=== PATIENT | male | born 1960 | race Caucasian/White ===

== ENCOUNTER 2016-12-22 06:07 | Day surgery (SDC) | payer OTHER ==
[2016-12-14 13:23] VITALS: BMI 53.0
[~2016-12-22] VITALS: Ht 185.4 cm; Wt 181.8 kg
[~2016-12-22 06:07] MED LIST: ACP20 PO; CARB25TA14 PO; FINA5TAB PO; LACTATED RINGER'S 1000ML 1,000 ML IV SCH; NAPR-1169 PO; NRV/5 PO; RANI150T3 PO
[2016-12-22] MEDS ORDERED: ACET-1311 PO (06:32)
[2016-12-22 06:34] VITALS: BP 156/90; PULSE 104; TEMP 36.6; O2SAT 95; Ht 185.4 cm; Wt 181.8 kg
[2016-12-22] MEDS ORDERED: FENTANYL CITRATE INJ 50 MCG/1 ML 2 ML VIAL ONE (06:50)
[2016-12-22] MEDS ORDERED: MIDAZOLAM HCL 1 MG/ML 2ML VIAL ONE (06:51)
--- NOTE | 2016-12-22 07:27 | Endo History and Physical ---
History & Physical Date of Service: Dec 22, 2016. Chief Complaint: Referring Physician: History of Present Illness 56 year old male patient of Dr. Catalan with a hx of obesity, GERD, recently dx'ed with HTN who presents today for RUQ pain. He first noticed this pain in August. It is intermittent, burning, "like someone is stabbing me," worse on an empty stomach, easing up a bit after eating. No nausea, no vomiting. Pain is present every day, present from 15 min to 3-4 hrs. Laying on his right side helps this. Tending toward constipation lately which he attributes to antibiotics and steroids for sinusitis. No black tarry stools no blood in stools. Weight is increasing. He has a hx of reflux, but this pain does not feel like reflux. Currently on Ranitidine and Aciphex. Prior work up to Date: RUQ US 10/27/16: Post cholecystectomy, no biliary duct dilatation. Hepatomegaly with steatosis. The common bile duct measures 5 mm. No ascites. EGD in 2011 for heartburn: - Normal esophagus. - Z-line regular, 42 cm from the incisors. - Gastritis. This was biopsied. - Two gastric polyps. This was biopsied. - Normal duodenal bulb. _ Normal 2nd part of the duodenum. This was biopsied.~ Results for PHILLIP PAPPAS ( ) as of 12/21/2016 12:50 Ref. Range 12/09/2016 14:38 ALBUMIN Latest Ref Range: 3.8 - 5.0 g/dL 4.4 ALKALINE PHOSPHATASE Latest Ref Range: 0 - 153 U/L 66 ALT Latest Ref Range: 10 - 50 U/L 33 AST Latest Ref Range: 10 - 50 U/L 29 BILIRUBIN Latest Ref Range: 0 - 1.2 mg/dL 0.4 PROTEIN Latest Ref Range: 6.0 - 8.3 g/dL 7.4 Results for PHILLIP PAPPAS ( ) as of 12/21/2016 12:50 Ref. Range 12/09/2016 14:38 BUN Latest Ref Range: 6 - 20 mg/dL 20 CREATININE Latest Ref Range: 0.6 - 1.2 mg/dL 0.9 E GLOM FILT RATE Latest Ref Range: >60 >60.0 SODIUM Latest Ref Range: 135 - 146 mmol/L 142 POTASSIUM Latest Ref Range: 3.5 - 5.1 mmol/L 4.3 CHLORIDE Latest Ref Range: 98 - 107 mmol/L 102 CO2 Latest Ref Range: 22 - 32 mmol/L 24 GLUCOSE Latest Ref Range: 70 - 120 mg/dL 91 CALCIUM Latest Ref Range: 8.4 - 10.2 mg/dL 9.7 ANION GAP Latest Ref Range: 7 - 15 mmol/L 16 (H) ALBUMIN Latest Ref Range: 3.8 - 5.0 g/dL 4.4 ALKALINE PHOSPHATASE Latest Ref Range: 0 - 153 U/L 66 ALT Latest Ref Range: 10 - 50 U/L 33 AST Latest Ref Range: 10 - 50 U/L 29 BILIRUBIN Latest Ref Range: 0 - 1.2 mg/dL 0.4 LIPASE Latest Ref Range: 16 - 63 U/L 42 PROTEIN Latest Ref Range: 6.0 - 8.3 g/dL 7.4 Past Medical History Arthritis, Reflux, Sleep Apnea Past Surgical History Hx Cardiac Surgery: No Hx Abdominal Surgery: Yes (LEFT INGUINAL HERNIA REPAIR;CHOLECYSTECTOMY) Hx Post-Op Nausea and Vomiting: Yes (PONV) Hx Cancer Surgery: No Hx Thoracic Surgery: No Hx Orthopedic: Yes (LEFT ANKLE ORIF, LEFT TKA) Hx Urinary Tract Surgery: No Social History Smoking Status: Never Smoker Hx Substance Use: No Hx Alcohol Use: No Allergies Coded Allergies: Sulfamethoxazole w/Trimethoprim (Verified Allergy, Mild, GI UPSET, 12/22/16 ) Current Medications Reported Home Medications Medications Dose Route/Sig Max Daily Dose Days Date Category Amlodipine Besylate 5 Mg Tab 5 Mg PO QAM 12/14/16 Reported Proscar (Finasteride) 5 Mg Tab 5 Mg PO QAM 12/14/16 Reported Sinemet 25MG/250MG (Carbidopa/Levodopa) Tab 1 Tab PO HS 12/14/16 Reported Zantac (Ranitidine HCl) 150 Mg Tab 150 Mg PO BID 08/09/14 Reported Naprosyn (Naproxen) 500 Mg Tab 500 Mg PO BID PRN 02/01/09 Reported Aciphex * (Rabeprazole Sodium) 20 Mg Tabcr 20 Mg PO QPM 02/01/09 Reported Vital Signs Weight (Kilograms): 181.82 Height (Feet): 6 Height (Inches): 1 Physical Exam General Appearance: WD/WN, no apparent distress Respiratory/Chest: Auscultation: breath sounds normal, CTA except as noted Cardiovascular: Apical Impulse: not displaced Heart Auscultation: RRR, normal S1, normal S2 Abdomen: Inspection & Palpation: soft, non-distended, no tenderness, guarding & rebound, no masses Assessment and Plan Plan for EUS/EGD for unexplained abdominal pain
[2016-12-22] MEDS ORDERED: LIDOCAINE HCL 2% 2 ML VIAL (20MG/ML) ONE (08:59)
[2016-12-22] MEDS ORDERED: PROPOFOL IV EMULSION 10 MG/ML 20 ML VIAL IV ONE (08:59)
[2016-12-22] MEDS ORDERED: LARYING-O-JET KIT (LTA) EXT ONE ×2 (08:59)
[2016-12-22] MEDS ORDERED: DEXAMETHASONE SOD INJ 4 MG/ML VIAL ONE (08:59)
[2016-12-22] MEDS ORDERED: ONDANSETRON INJ 2 MG/ML 2 ML VIAL ONE (08:59)
[2016-12-22] MEDS ORDERED: SUCCINYLCHOLINE CHLORIDE 20 MG/ML 10 ML VIAL IV ONE (08:59)
--- NOTE | 2016-12-22 09:01 | GI REPORT ---
Procedure Date: 12/22/2016 8:31 AM Procedure: Upper GI endoscopy Indications: Epigastric abdominal pain Medicines: General Anesthesia Complications: No immediate complications. Estimated blood loss: None. Estimated Blood Loss: Estimated blood loss: none. Procedure: Pre-Anesthesia Assessment: - Pre-Anesthesia Assessment: - Prior to the procedure, a History and Physical was performed, and patient medications, allergies and sensitivities were reviewed. The patient's tolerance of previous anesthesia was reviewed. Please see [employer] for complete details. - The risks and benefits of the procedure and the sedation options and risks were discussed with the patient. All questions were answered and informed consent was obtained. - Patient identification and proposed procedure were verified prior to the procedure by the physician and the nurse. The procedure was verified in the pre-procedure area in the procedure room. After obtaining informed consent, the endoscope was passed carefully and meticuously under direct vision and only advanced when the lumen was clearly identified, C02 insuflation was utilized throughout the entirity of the procedure. Throughout the procedure, the patient's blood pressure, pulse, and oxygen saturations were monitored continuously. After obtaining informed consent, the endoscope was passed under direct vision. Throughout the procedure, the patient's blood pressure, pulse, and oxygen saturations were monitored continuously. The scope was introduced through the mouth, and advanced to the second part of duodenum. The upper GI endoscopy was accomplished without difficulty. The patient tolerated the procedure well. Findings: The examined esophagus was normal. Localized mild inflammation characterized by erythema was found in the gastric antrum. Biopsies were taken with a cold forceps for histology. The examined duodenum was normal. Biopsies were taken with a cold forceps for histology. Impression: - Normal esophagus. - Gastritis. Biopsied. - Normal examined duodenum. Biopsied. Recommendation: - Await pathology results. - Discharge patient to home (with escort). - Return to referring physician as previously scheduled. - Perform an upper endoscopic ultrasound (UEUS) today. Gonzalez Collins MD 12/22/2016 9:00:32 AM This report has been signed electronically. Note Initiated On: 12/22/2016 8:31 AM
--- NOTE | 2016-12-22 09:21 | Discharge Instructions ---
Endoscopy Patient Instructions Date / Procedure(s) Performed Dec 22, 2016. EGD, Other (EUS) Allergy Information Coded Allergies: Sulfamethoxazole w/Trimethoprim (Verified Allergy, Mild, GI UPSET, 12/22/16 ) Discharge Date / Findings Dec 22, 2016. Mild inflammation in stomach, otherwise normal Provider Instructions Activity Restrictions - No exercising or heavy lifting for 24 hours. - Do not drink alcohol the day of the procedure. - Do not drive a car or operate machinery until the day after the procedure. - Do not make any important decisions or sign important papers in 24 hours after the procedure. Following Day: - Return to full activity which may include returning to work/school. Diet Start your diet with liquids and light foods (jello, soup, juice, toast). Then eat your usual diet if not nauseated. Treatment For Common After Affects For mild abdominal pain, bloating, or excessive gas: - Rest - Eat lightly - Lie on right side Follow-Up Information Follow-up with as scheduled Anesthesia Information What You Should Know You have had a procedure that required some medicine to reduce anxiety and discomfort. This treatment is called moderate sedation. After receiving the treatment, you may be sleepy, but you will be able to breathe on your own. The effects of the treatment may last for several hours. Follow these instructions along with Activity/Diet recommendations noted above: * Do NOT do anything where dizziness or clumsiness would be dangerous. * Rest quietly at home today, then you can be up and about tomorrow. * Have a responsible person stay with you the rest of today. * You may have had an I.V. today. If so, you may take the dressing off later today. Recommendations Call your doctor if: * Trouble breathing * Continuous vomiting for more than 24 hours * Temperature above 101 degrees * Severe abdominal pain or bloating * Pain not relieved by pain medicine ordered * There is increased drainage or redness from any incision * A large amount of rectal bleeding greater than 2-3 tablespoons. (If you had a polyp/s removed or have hemorrhoids, a small amount of blood - from the rectum is to be expected.) * You have any unanswered questions or concerns. IN THE EVENT OF A SERIOUS EMERGENCY, GO TO THE NEAREST EMERGENCY ROOM Your discharge instructions were prepared by provider Gonzalez Collins. Patient Instructions Signature Page Justin Adame Patient (or Guardian) Signature/Date: I have read and understand the instructions given to me by my caregivers. Caregiver/RN/Doctor Signature/Date: The above-named patient and/or guardian has received patient instructions on this date. + Original Patient Signature Page (only) stays with chart. Please make copy for patient.
--- NOTE | 2016-12-22 09:24 | GI REPORT ---
Procedure Date: 12/22/2016 8:33 AM Procedure: Upper EUS Indications: Epigastric abdominal pain Medicines: General Anesthesia Complications: No immediate complications. Estimated blood loss: None. Estimated Blood Loss: Estimated blood loss: none. Procedure: Pre-Anesthesia Assessment: - Pre-Anesthesia Assessment: - Prior to the procedure, a History and Physical was performed, and patient medications, allergies and sensitivities were reviewed. The patient's tolerance of previous anesthesia was reviewed. Please see [employer] for complete details. - The risks and benefits of the procedure and the sedation options and risks were discussed with the patient. All questions were answered and informed consent was obtained. - Patient identification and proposed procedure were verified prior to the procedure by the physician and the nurse. The procedure was verified in the pre-procedure area in the procedure room. After obtaining informed consent, the endoscope was passed carefully and meticuously under direct vision and only advanced when the lumen was clearly identified, C02 insuflation was utilized throughout the entirity of the procedure. Throughout the procedure, the patient's blood pressure, pulse, and oxygen saturations were monitored continuously. After obtaining informed consent, the endoscope was passed under direct vision. Throughout the procedure, the patient's blood pressure, pulse, and oxygen saturations were monitored continuously. The Endosonoscope was introduced through the mouth, and advanced to the second part of duodenum. The upper EUS was accomplished without difficulty. The patient tolerated the procedure well. Findings: Endosonographic Finding : Pancreatic parenchymal abnormalities were noted in the entire pancreas. These consisted of diffuse echogenicity. Endosonographic imaging in the entire pancreas showed no cyst/pseudocyst, no mass and no pancreatic duct changes. There was diffuse abnormal echotexture in the left lobe of the liver. This was characterized by a hyperechoic appearance. No lymphadenopathy seen. There was no sign of significant endosonographic abnormality in the entire examined left adrenal gland. There was no sign of significant endosonographic abnormality involving the celiac trunk. Impression: - Pancreatic parenchymal abnormalities consisting of diffuse echogenicity were noted in the entire pancreas. - There was diffuse abnormal echotexture in the left lobe of the liver. This was characterized by a hyperechoic appearance. - Endosonographic images of the left adrenal gland were unremarkable. - The celiac trunk was endosonographically normal. - No specimens collected. Recommendation: - Discharge patient to home (with escort). - Return to referring physician as previously scheduled. Gonzalez Collins MD 12/22/2016 9:24:14 AM This report has been signed electronically. Note Initiated On: 12/22/2016 8:33 AM
--- NOTE | 2016-12-22 09:49 | Anesthesiology Progress Note ---
Anesthesia Post Op Note Date & Time Dec 22, 2016 at 09:49 Vital Signs Pain Intensity: 0 Vital Signs Past 12 Hours Date Time Temp Pulse Resp B/P Pulse Ox O2 Delivery O2 Flow Rate FiO2 12/22/16 09:45 84 24 133/80 97 Mask 10 12/22/16 09:35 86 12 124/85 100 Mask 10 12/22/16 09:25 36.0 84 14 145/104 99 Mask 10 12/22/16 06:34 36.6 104 20 156/90 95 Room Air Notes Mental Status: alert / awake / arousable, participated in evaluation Pt Amnestic to Procedure: Yes Nausea / Vomiting: adequately controlled Pain: adequately controlled Airway Patency, RR, SpO2: stable & adequate BP & HR: stable & adequate Hydration State: stable & adequate Anesthetic Complications: no major complications apparent
[2016-12-22] MEDS ORDERED: ATROPINE SULFATE 0.1 MG/ML 5ML SYR IV PRN (10:00)
[2016-12-22] MEDS ORDERED: EpHEDrine SULFATE INJ 50 MG/ML AMP IV PRN (10:00)
[2016-12-22 10:10] VITALS: BP 140/81; PULSE 78; TEMP 36.7; O2SAT 92
[2016-12-22 10:40] VITALS: BP 136/73; PULSE 80; O2SAT 95
[2016-12-22 11:10] VITALS: BP 123/84; PULSE 82; TEMP 36.4; O2SAT 95
[2017-06-16] MEDS ORDERED: LTR510 PO (14:48)
== END 2016-12-22 11:25 | disposition home or self-care (01) ==
LOC: C.ACU 06:07
PROVIDERS: ATTEND Internal Medicine
DX: K29.70 Gastritis, unspecified, without bleeding (principal); K21.9 Gastro-esophageal reflux disease without esophagitis; E66.9 Obesity, unspecified; I10 Essential (primary) hypertension; Z98.890 Other specified postprocedural states; Z88.2 Allergy status to sulfonamides

== ENCOUNTER → 2017-06-25 | Day surgery (SDC) | payer OTHER ==
[2017-06-16 14:49] VITALS: BMI 55.0
[~2017-06-25] VITALS: Ht 185.4 cm; Wt 189.6 kg
[~2017-06-25] MED LIST changes: +ACET-1311 PO; +LACTATED RINGER'S 1000ML 1,000 ML IV ONE; -LACTATED RINGER'S 1000ML 1,000 ML IV SCH; +LIDOCAINE HCL 2% 2 ML VIAL (20MG/ML) ONE; +LTR510 PO; +ONDANSETRON INJ 2 MG/ML 2 ML VIAL IV PRN; +ONDANSETRON INJ 2 MG/ML 2 ML VIAL ONE; +PROPOFOL IV EMULSION 10 MG/ML 20 ML VIAL IV ONE
[2017-06-25 07:57] VITALS: Ht 185.4 cm; Wt 189.6 kg
[2017-06-25 08:02] VITALS: TEMP 36.5
--- NOTE | 2017-06-25 08:31 | Endo History and Physical ---
History & Physical Date of Service: Jun 25, 2017. Chief Complaint: 5 YEAR FOLLOW UP FOR POLYPS Referring Physician: DR PORTER History of Present Illness The patient presents for a surveillance colonoscopy. His last examination was 5 years ago notable for several small colonic polyps Past Medical History Arthritis, Reflux, Sleep Apnea Past Surgical History Hx Cardiac Surgery: No Hx Internal Defibrillator: No Hx Pacemaker: No Hx Abdominal Surgery: Yes (LT INGUINAL HERNIA REPAIR, KLAUS) Hx of Implantable Prosthesis: No Hx Post-Op Nausea and Vomiting: Yes Hx Cancer Surgery: No Hx Thoracic Surgery: No Hx Orthopedic: Yes (LT ANKLE ORIF, LT TKA) Hx Urinary Tract Surgery: No Family History None Social History Smoking Status: Never Smoker Hx Substance Use: No Hx Alcohol Use: No Allergies Coded Allergies: Sulfamethoxazole w/Trimethoprim (Verified Allergy, Mild, GI UPSET, 06/25/17) Current Medications Reported Home Medications Medications Dose Route/Sig Max Daily Dose Days Date Category Lotrel 5MG/10MG (Amlodipine/Benazepril HCl) 5 Mg/10 Mg Cap 1 Cap PO QAM 06/16/17 Reported Tylenol (Acetaminophen) 325 Mg Tab 3 Tabs PO BID PRN 12/22/16 Reported Amlodipine Besylate 5 Mg Tab 5 Mg PO QAM 12/14/16 Reported Proscar (Finasteride) 5 Mg Tab 5 Mg PO QAM 12/14/16 Reported Sinemet 25MG/250MG (Carbidopa/Levodopa) Tab 1 Tab PO HS 12/14/16 Reported Zantac (Ranitidine HCl) 150 Mg Tab 150 Mg PO BID 08/09/14 Reported Naprosyn (Naproxen) 500 Mg Tab 500 Mg PO BID PRN 02/01/09 Reported Aciphex * (Rabeprazole Sodium) 20 Mg Tabcr 20 Mg PO QPM 02/01/09 Reported Vital Signs Weight (Kilograms): 189.55 Height (Feet): 6 Height (Inches): 1 Date Time Temp Pulse Resp B/P (MAP) Pulse Ox O2 Delivery O2 Flow Rate FiO2 06/25/17 08:02 36.5 93 18 173/91 (118) 95 Room Air Physical Exam General Appearance: no apparent distress Respiratory/Chest: Respiratory effort: no dyspnea Auscultation: breath sounds normal Cardiovascular: Heart Auscultation: RRR Abdomen: Inspection & Palpation: soft Assessment and Plan The patient presents for surveillance colonoscopy today. We discussed the risks and benefits to include bleeding, infection, perforation and missed polyps.
--- NOTE | 2017-06-25 08:55 | Discharge Instructions ---
Endoscopy Patient Instructions Date / Procedure(s) Performed Jun 25, 2017. Colonoscopy Allergy Information Coded Allergies: Sulfamethoxazole w/Trimethoprim (Verified Allergy, Mild, GI UPSET, 06/25/17) Discharge Date / Findings Jun 25, 2017. Diverticulosis of the colon Hemorrhoids Medication Instructions Stopped Medication(s): NAPROSYN Reported Home Medications Medications Dose Route/Sig Max Daily Dose Days Date Category Lotrel 5MG/10MG (Amlodipine/Benazepril HCl) 5 Mg/10 Mg Cap 1 Cap PO QAM 06/16/17 Reported Tylenol (Acetaminophen) 325 Mg Tab 3 Tabs PO BID PRN 12/22/16 Reported Amlodipine Besylate 5 Mg Tab 5 Mg PO QAM 12/14/16 Reported Proscar (Finasteride) 5 Mg Tab 5 Mg PO QAM 12/14/16 Reported Sinemet 25MG/250MG (Carbidopa/Levodopa) Tab 1 Tab PO HS 12/14/16 Reported Zantac (Ranitidine HCl) 150 Mg Tab 150 Mg PO BID 08/09/14 Reported Naprosyn (Naproxen) 500 Mg Tab 500 Mg PO BID PRN 02/01/09 Reported Aciphex * (Rabeprazole Sodium) 20 Mg Tabcr 20 Mg PO QPM 02/01/09 Reported Provider Instructions Activity Restrictions - No exercising or heavy lifting for 24 hours. - Do not drink alcohol the day of the procedure. - Do not drive a car or operate machinery until the day after the procedure. - Do not make any important decisions or sign important papers in 24 hours after the procedure. Following Day: - Return to full activity which may include returning to work/school. Diet Start your diet with liquids and light foods (jello, soup, juice, toast). Then eat your usual diet if not nauseated. Treatment For Common After Affects For mild abdominal pain, bloating, or excessive gas: - Rest - Eat lightly - Lie on right side Follow-Up Information Follow-up with DR PORTER as scheduled Surveillance colonoscopy in 5 years Anesthesia Information What You Should Know You have had a procedure that required some medicine to reduce anxiety and discomfort. This treatment is called moderate sedation. After receiving the treatment, you may be sleepy, but you will be able to breathe on your own. The effects of the treatment may last for several hours. Follow these instructions along with Activity/Diet recommendations noted above: * Do NOT do anything where dizziness or clumsiness would be dangerous. * Rest quietly at home today, then you can be up and about tomorrow. * Have a responsible person stay with you the rest of today. * You may have had an I.V. today. If so, you may take the dressing off later today. Recommendations Call your doctor if: * Trouble breathing * Continuous vomiting for more than 24 hours * Temperature above 101 degrees * Severe abdominal pain or bloating * Pain not relieved by pain medicine ordered * There is increased drainage or redness from any incision * A large amount of rectal bleeding greater than 2-3 tablespoons. (If you had a polyp/s removed or have hemorrhoids, a small amount of blood - from the rectum is to be expected.) * You have any unanswered questions or concerns. IN THE EVENT OF A SERIOUS EMERGENCY, GO TO THE NEAREST EMERGENCY ROOM Your discharge instructions were prepared by provider Jesus Pinzon. Patient Instructions Signature Page Justin Adame Patient (or Guardian) Signature/Date: I have read and understand the instructions given to me by my caregivers. Caregiver/RN/Doctor Signature/Date: The above-named patient and/or guardian has received patient instructions on this date. + Original Patient Signature Page (only) stays with chart. Please make copy for patient.
--- NOTE | 2017-06-25 08:59 | GI REPORT ---
Procedure Date: 06/25/2017 8:24 AM Procedure: Colonoscopy Indications: High risk colon cancer surveillance: Personal history of colonic polyps Medicines: Monitored Anesthesia Care Complications: No immediate complications. Estimated blood loss: Minimal. Estimated Blood Loss: Estimated blood loss was minimal. Procedure: Pre-Anesthesia Assessment: - Prior to the procedure, a History and Physical was performed, and patient medications, allergies and sensitivities were reviewed. The patient's tolerance of previous anesthesia was reviewed. - The risks and benefits of the procedure and the sedation options and risks were discussed with the patient. All questions were answered and informed consent was obtained. - Patient identification and proposed procedure were verified prior to the procedure by the physician, the nurse and the cashier. The procedure was verified in the procedure room. - Pre-procedure physical examination revealed no contraindications to sedation. - ASA Grade Assessment: III - A patient with severe systemic disease. - After reviewing the risks and benefits, the patient was deemed in satisfactory condition to undergo the procedure. - The anesthesia plan was to use monitored anesthesia care (MAC). - Immediately prior to administration of medications, the patient was re-assessed for adequacy to receive sedatives. - The heart rate, respiratory rate, oxygen saturations, blood pressure, adequacy of pulmonary ventilation, and response to care were monitored throughout the procedure. - The physical status of the patient was re-assessed after the procedure. After I obtained informed consent, the scope was passed under direct vision. Throughout the procedure, the patient's blood pressure, pulse, and oxygen saturations were monitored continuously. The scope was introduced through the anus and advanced to the terminal ileum. The colonoscopy was performed without difficulty. The patient tolerated the procedure well. The quality of the bowel preparation was good. Findings: The perianal and digital rectal examinations were normal. Pertinent negatives include normal sphincter tone. The terminal ileum appeared normal. Multiple small and large-mouthed diverticula were found in the sigmoid colon and in the descending colon. Internal hemorrhoids were found during retroflexion. The hemorrhoids were mild. The exam was otherwise without abnormality. Impression: - The examined portion of the ileum was normal. - Diverticulosis in the sigmoid colon and in the descending colon. - Internal hemorrhoids. - The examination was otherwise normal. - No specimens collected. Recommendation: - Discharge patient to home (ambulatory). - Advance diet as tolerated today. - Repeat colonoscopy in 5 years for surveillance. - Use fiber, for example Citrucel, Fibercon, Konsyl or Metamucil. Jesus Pinzon D.O. Jesus Pinzon, DO 06/25/2017 8:58:34 AM This report has been signed electronically. Note Initiated On: 06/25/2017 8:24 AM I attest to the content of the Intraoperative Record and orders documented therein, exceptions below
[2017-06-25 09:15] VITALS: PULSE 74
--- NOTE | 2017-06-25 09:29 | Anesthesiology Progress Note ---
Anesthesia Post Op Note Date & Time Jun 25, 2017 at 09:28 Vital Signs Pain Intensity: 0 Vital Signs Past 12 Hours Date Time Temp Pulse Resp B/P (MAP) Pulse Ox O2 Delivery O2 Flow Rate FiO2 06/25/17 09:15 74 18 135/91 (106) 95 Room Air 06/25/17 08:54 81 16 103/68 (80) 95 Room Air 06/25/17 08:02 36.5 93 18 173/91 (118) 95 Room Air Notes Mental Status: alert / awake / arousable, participated in evaluation Pt Amnestic to Procedure: Yes Nausea / Vomiting: adequately controlled Pain: adequately controlled Airway Patency, RR, SpO2: stable & adequate BP & HR: stable & adequate Hydration State: stable & adequate Anesthetic Complications: no major complications apparent
[2017-06-25 09:30] VITALS: BP 134/65; O2SAT 95
== END | disposition home or self-care (01) ==
LOC: C.GI 07:14
PROVIDERS: ATTEND Internal Medicine Gastroenterology
DX: Z12.11 Encounter for screening for malignant neoplasm of colon (principal); Z86.010 Personal history of colon polyps; K57.30 Diverticulosis of large intestine without perforation or abscess without bleeding; K64.8 Other hemorrhoids; M25.50 Pain in unspecified joint; K21.9 Gastro-esophageal reflux disease without esophagitis; G47.33 Obstructive sleep apnea (adult) (pediatric); Z90.49 Acquired absence of other specified parts of digestive tract; Z96.652 Presence of left artificial knee joint; I10 Essential (primary) hypertension; Z87.442 Personal history of urinary calculi; N40.0 Benign prostatic hyperplasia without lower urinary tract symptoms; E66.01 Morbid (severe) obesity due to excess calories

== ENCOUNTER 2018-02-25 08:48 | Inpatient (IN) | payer OTHER ==
[2018-01-26 10:20] VITALS: BMI 56.0
--- NOTE | 2018-01-26 11:03 | PAT Medication Instructions ---
Service Date Jan 26, 2018. Current Home Medication List Acetaminophen (Tylenol Arthritis Ext Rel), 2 TAB PO UD PRN for Pain Carbidopa/Levodopa (Sinemet 25MG/250MG), 1 TAB PO HS Finasteride (Proscar), 5 MG PO QAM Fluticasone Propionate (Flovent Hfa), PUFFS INH BID Fluticasone Propionate (Nasal) (Allergy Nasal [place] [address] Ho), 2 SPRAYS DELICIA UD PRN for prn Naproxen (Naprosyn), 500 MG PO BID PRN for Pain Rabeprazole Sodium (Aciphex), 20 MG PO QPM Ranitidine Hcl (Zantac), 150 MG PO BID Tamsulosin HCl (Tamsulosin HCl), 1 CAP PO HS Triamcinolone Acet (Aristocort 0.1%), Unknown Dose TOP UD PRN for skin needs Medication Instructions For Your Scheduled Surgery - Hold the following medications 10 days prior to surgery per your surgeon's instructions: -Naproxen (Naprosyn), 500 MG PO BID PRN for Pain - Hold the following medications 24 hours prior to surgery: Triamcinolone Acet (Aristocort 0.1%), Unknown Dose TOP UD PRN for skin needs - Take the following medications the morning of surgery with a sip of water: Acetaminophen (Tylenol Arthritis Ext Rel), 2 TAB PO UD PRN for Pain (if needed, can be taken up to four hours before surgery) Finasteride (Proscar), 5 MG PO QAM Fluticasone Propionate (Flovent Hfa), PUFFS INH BID Fluticasone Propionate (Nasal) (Allergy Nasal [place] [address] Ho), 2 SPRAYS DELICIA UD PRN for prn (if needed) Ranitidine Hcl (Zantac), 150 MG PO BID - Take the following medications as scheduled the night before surgery: Acetaminophen (Tylenol Arthritis Ext Rel), 2 TAB PO UD PRN for Pain (if needed) Carbidopa/Levodopa (Sinemet 25MG/250MG), 1 TAB PO HS Fluticasone Propionate (Nasal) (Allergy Nasal [place] [address] Ho), 2 SPRAYS DELICIA UD PRN for prn (if needed) Rabeprazole Sodium (Aciphex), 20 MG PO QPM Ranitidine Hcl (Zantac), 150 MG PO BID Tamsulosin HCl (Tamsulosin HCl), 1 CAP PO HS If you have any questions please call us at [phone] or [phone] or [phone]
--- NOTE | 2018-01-26 11:34 | DIAGNOSTIC IMAGING REPORT ---
CHEST 2 VIEWS ROUTINE CLINICAL HISTORY: PAT preoperative evaluation COMPARISON STUDY: 09/08/2014 FINDINGS: The bones soft tissues and hemidiaphragms are normal. The cardiomediastinal silhouette is normal. The lungs are clear. The pulmonary vasculature is normal. IMPRESSION: Negative chest. The above report was generated using voice recognition software. It may contain grammatical, syntax or spelling errors. Electronically signed by: Grady Bai M.D. 01/26/2018 11:32 AM Dictated Date/Time: 01/26/2018 11:32 AM
[2018-01-26 12:26] LABS: BASO % 0.4 %; BASO ABS # 0.03 K/uL (0-0.2); EOS % 1.1 %; EOS ABS # 0.08 K/uL (0-0.5); HEMATOCRIT 45.9 % (42-52); HEMOGLOBIN 15.6 g/dL (14.0-18.0); IG# 0.03 K/uL (0.00-0.02); LYMPH % 24.5 %; LYMPH ABS # 1.78 K/uL (1.2-3.4); MEAN CELL VOLUME 86.4 fL (80-100); MEAN CORPUSCULAR HEMOGLOBIN 29.4 pg (25-34); MEAN PLATELET VOLUME 10.4 fL (7.4-10.4); MONO % 7.7 %; MONO ABS # 0.56 K/uL (0.11-0.59); NEUT % 65.9 %; PLATELET COUNT 177 K/uL (130-400); RED CELL DISTRIBUTION WIDTH SD 44.3 fL (36.4-46.3); WHITE BLOOD COUNT 7.28 K/uL (4.8-10.8)
[2018-01-26 12:38] LABS: CALCIUM 9.4 mg/dl (8.5-10.1); CREATININE 0.87 mg/dl (0.60-1.40); POTASSIUM 4.2 mmol/L (3.5-5.1); PTT PATIENT 24.6 SECONDS (21.0-31.0)
[2018-01-26 13:47] LABS: HEMOGLOBIN A1C 5.9 % (4.5-5.6)
--- NOTE | 2018-02-17 19:21 | HISTORY & PHYSICAL EXAMINATION ---
DATE OF ADMISSION: 02/25/2018 CHIEF COMPLAINT: Right knee pain. HISTORY OF PRESENT ILLNESS: The patient is a 57-year-old obese gentleman who is well known to me from previous left knee replacement done about 3 years ago, who presents for surgical treatment of his right knee. He has got a long history of right knee pain and discomfort, followed by my partner Dr. Camarena. He has been through extensive conservative treatment including injections and medicines. Pain has become more disabling. The shots only help him for a very brief period of time. He describes pain globally in his knee. The more he walks, the more he hurts. He limps more as the day goes on. He would like to proceed with right knee replacement. He is very happy with his left knee. PAST MEDICAL HISTORY: 1. Hypertension. 2. Sleep apnea. 3. Obesity with a BMI of 56. 4. Gastroesophageal reflux disease. 5. BPH. PREVIOUS SURGERIES: Include: 1. Left knee replacement done 09/07/2014. 2. Ankle surgery. 3. Herniorrhaphy. 4. Cholecystectomy. 5. Sinus surgery. 6. Shoulder surgery. ALLERGIES: UNSPECIFIED ANTIBIOTIC. CURRENT MEDICINES: Include: 1. Proscar 5 mg a day. 2. Flomax 0.4 mg. 3. Aristocort topical cream. 4. Flonase 2 sprays in each nostril daily. 5. Naproxen twice a day. 6. Zantac 150 mg twice a day. 7. Aciphex 20 mg a day. 8. Lotrel 5/10 once a day. 9. Hydrochlorothiazide 25 mg. 10. Carbidopa/levodopa 25/250 at bedtime. 11. Triamcinolone cream. SOCIAL HISTORY: A 57-year-old male. He is from [place]. 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 He is . FAMILY HISTORY: Significant for breast cancer, diabetes, heart disease. REVIEW OF SYSTEMS: Significant for obesity. Denies any diabetes. No chest pain, no shortness of breath. No history of DVT or PE. PHYSICAL EXAMINATION: GENERAL: Reveals a pleasant middle-aged male. Fairly large gentleman. HEENT: Benign. NECK: Supple, no lymphadenopathy. LUNGS: Clear to auscultation. HEART: Regular rate and rhythm. ABDOMEN: Soft, nontender, nondistended. EXTREMITIES: Grossly neurovascularly intact except as follows: Examination of both knees reveals the patient ambulates with a waddling gait. Examination of left knee reveals a well-healed incision. Knee alignment looks anatomic. Range of motion is 0-120. No instability. Examination of the right knee reveals a moderate soft tissue envelope. He has slight varus alignment to his knee. Small to moderate size knee effusion. Range of motion is 5-120. No instability. X-RAYS: X-ray of the right knee reviewed. It shows advanced right knee DJD. He has got complete loss of his medial joint space. He has subchondral sclerosis and osteophytes off the medial femoral condyle and medial tibial plateau. The left knee replacement looks to be in good position. ASSESSMENT: A 57-year-old male 3 years out from left knee replacement with advanced right knee degenerative joint disease. He has failed conservative treatment and would like to have his right knee replaced. PLAN: We are going to take him to the operating room and do right total knee replacement. The risks and benefits of this procedure were explained to the patient including but not limited to DVT, PE, , infection, neurological injury, vascular injury, bleeding problem, pain, limited range of motion, stiffness, failure to relieve symptoms, incomplete relief of symptoms, need for further surgery in the future, fracture, leg length inequality, nerve palsy and need for revision surgery. The patient understands and desires to proceed. Informed consent was obtained. Based on his size, I did tell him he is at increased risk of infection and he is aware of that. We will plan on using a tibial stem due to his large size and the stress that he will put on the implant in hopes of avoiding a need for revision in the future. As far as discharge plans, he is planning to be discharged to home, using the home health program.
[~2018-02-25] VITALS: Ht 185.4 cm; Wt 193.6 kg
[2018-02-25] VITALS (8 sets, daily range): BP systolic 110–163; BP diastolic 70–95; PULSE 76–102; TEMP 36.6–37; O2SAT 92–98; Ht 185.4 cm; Wt 193.6 kg
[~2018-02-25 08:48] MED LIST changes: -ACET-1311 PO; +ACET1TAB84 PO; +ACETAMINOPHEN 500 MG TAB PO SCH; -ACP20 PO; +BUPIVACAINE 0.5 % 5 MG/1 ML PF 10ML VIAL ONE; +BUPIVACAINE LIPOSOME 266 MG, BUPIVACAINE/EPINEPHRINE INJ 50 ML, SODIUM CHLORIDE 0.9% PF... INFIL SCH; +CEFAZOLIN 3000MG IV PUSH 22.5 ML IV SCH; +FAMOTIDINE 20 MG TAB PO SCH; +FLM4 PO; +FLUT50SP45 NAE; +FLVHFA110 INH; +GABAPENTIN 600 MG PO SCH; -LACTATED RINGER'S 1000ML 1,000 ML IV ONE; +LACTATED RINGER'S 1000ML 1,000 ML IV SCH; +LACTATED RINGER'S 1000ML 500 ML IV SCH; +LACTATED RINGER'S 1000ML IV SCH; -LIDOCAINE HCL 2% 2 ML VIAL (20MG/ML) ONE; -LTR510 PO; +METOCLOPRAMIDE HCL 10 MG TAB PO SCH; -NRV/5 PO; -ONDANSETRON INJ 2 MG/ML 2 ML VIAL IV PRN; -ONDANSETRON INJ 2 MG/ML 2 ML VIAL ONE; -PROPOFOL IV EMULSION 10 MG/ML 20 ML VIAL IV ONE; +RABE20TA5 PO; +ROPIVACAINE 0.5% 5 MG/ML 30 ML VIAL ONE; +SCOPOLAMINE 1.5 MG TDSY TD SCH; +TRANEXAMIC ACID INJ 1,000 MG x 1 Bag Intra-Op IV SCH; +TRMCR180 TOP
--- NOTE | 2018-02-25 09:04 | History & Physical Bridge Note ---
H&P Re-Evaluation Bridge Note: I have examined the patient, reviewed the History & Physical and in the interval since the performance of the History & Physical I have noted the following changes of clinical significance: No changes noted
[2018-02-25] MEDS ORDERED: PROPOFOL IV EMULSION 10 MG/ML 20 ML VIAL IV ONE ×3 (09:21→12:51)
[2018-02-25] MEDS ORDERED: LIDOCAINE HCL 2% 2 ML VIAL (20MG/ML) ONE (09:21)
[2018-02-25] MEDS ORDERED: FENTANYL CITRATE INJ 50 MCG/1 ML 2 ML VIAL ONE (09:22)
[2018-02-25] MEDS ORDERED: MIDAZOLAM HCL 1 MG/ML 2ML VIAL ONE ×3 (09:22→11:57)
[2018-02-25] MEDS ORDERED: BUPIVACAINE LIPOSOME 1/3% 266 MG/20 ML VIAL INFIL ONE (10:36)
[2018-02-25] MEDS ORDERED: BACITRACIN 50000 UNIT VIAL ONE (10:36)
[2018-02-25] MEDS ORDERED: SODIUM CHLORIDE 0.9% PF 50 ML VIAL ONE (10:36)
[2018-02-25] MEDS ORDERED: EpINEphrine INJ 1MG/ML AMP 1 MG/ML AMP ONE (10:37)
[2018-02-25] MEDS ORDERED: BUPIVACAINE 0.25% 30 ML VIAL ONE (10:37)
[2018-02-25] MEDS ORDERED: VANCOMYCIN HCL 1000MG/20ML VIAL ONE (10:51)
[2018-02-25] MEDS ORDERED: ATROPINE SULFATE 0.1 MG/ML 5ML SYR IV PRN (11:30)
[2018-02-25] MEDS ORDERED: EpHEDrine SULFATE INJ 50 MG/ML AMP IV PRN (11:30)
[2018-02-25] MEDS ORDERED: PHENYLEPHRINE 100MCG/ML 5ML SYR ONE (11:31)
[2018-02-25] MEDS ORDERED: KETAMINE HCL INJ 50 MG/ML 10 ML VIAL ONE (12:57)
--- NOTE | 2018-02-25 13:12 | [facility] Post Operative Brief Note ---
Immediate Operative Summary Operative Date Feb 25, 2018. Pre-Operative Diagnosis Right Knee Degenerative Joint Disease Post-Operative Diagnosis Same as preop Procedure(s) Performed Right Total Knee Arthroplasty Surgeon Dr. Henry Lockstitch Binder Surgeon(s) Jaime eKnt PA-C Estimated Blood Loss 50 ml Findings Consistent with Post-Op Diagnosis Fluids (cc crystalloids) 1600 cc Specimens A. Right Knee Bone and Tissue Drains None Anesthesia Type MAC Spinal Regional Complication(s) none Disposition Accompanied Pt To Recover: no Disposition: Recovery Room / PACU
[2018-02-25] MEDS ORDERED: MoRPHine SULFATE 2 MG/ML CARP IV PRN (13:15)
[2018-02-25] MEDS ORDERED: ZOLPIDEM TARTRATE 5 MG TAB PO PRN (13:15)
[2018-02-25] MEDS ORDERED: ONDANSETRON INJ 2 MG/ML 2 ML VIAL IV PRN (13:15)
[2018-02-25] MEDS ORDERED: METOCLOPRAMIDE HCL INJ 5 MG/ML 2 ML VIAL IV PRN (13:15)
[2018-02-25] MEDS ORDERED: FLUTICASONE PROPIONATE NA SPR 16 GM BTL NAE PRN (13:15)
[2018-02-25] MEDS ORDERED: DiphenhydrAMINE HCL 50 MG/ML VIAL IV PRN (13:15)
[2018-02-25] MEDS ORDERED: CEFAZOLIN IV 2,000 MG in DEXTROSE 5% 50ML 50 ML IV SCH (13:15)
[2018-02-25] MEDS ORDERED: TAMSULOSIN HCL 0.4 MG CAP PO PRN (13:15)
[2018-02-25] MEDS ORDERED: ALUMINUM/MAGNESIUM/SIMETH (MAALOX MAX) 30 ML UDC PO PRN (13:15)
[2018-02-25] MEDS ORDERED: MAGNESIUM HYDROXIDE SUSP 30 ML UDC PO PRN (13:15)
[2018-02-25] MEDS ORDERED: BISACODYL 10 MG SUPP PR PRN (13:15)
[2018-02-25] MEDS ORDERED: HYDROmorphone INJ 0.5 MG/0.5 ML SYR ONE ×2 (13:29→14:10)
--- NOTE | 2018-02-25 13:52 | OPERATIVE REPORT ---
DATE OF OPERATION: 02/25/2018 SURGEON: Jesse Henry MD WASTE REMOVALIST: STERLING Ward PREOPERATIVE DIAGNOSIS: Right knee degenerative joint disease. POSTOPERATIVE DIAGNOSIS: Same. PROCEDURE PERFORMED: Right cemented posterior stabilized total knee arthroplasty. COMPLICATIONS: None. ESTIMATED BLOOD LOSS: 50 mL. FLUID REPLACEMENT: 1600 mL crystalloid fluid replacement. ANESTHESIA: Spinal with adductor canal block. DRAINS: None. SPECIMENS: Right knee sent for pathology. TOURNIQUET TIME: 79 minutes at 350 mmHg. OPERATIVE INDICATIONS: The patient is a 57-year-old gentleman who has had a long history of bilateral knee pain and discomfort. He underwent a left knee replacement 3 years ago and has done well from this. Over the years, he has developed increased pain and discomfort in his right knee, which limit his activities. He had failed all conservative care. He elected to proceed with surgical treatment. Of note, this patient is morbidly obese with a BMI of 56.3. OPERATIVE FINDINGS: Operative findings revealed advanced right knee DJD. He had grade 4 [id number]-[id number] disease in the medial femoral condyle and medial tibial plateau along with eburnation in the surfaces. He had spotty grade 4 changes elsewhere. Moderate size joint effusion. Large soft tissue envelope. OPERATIVE IMPLANTS: Operative implants consisted of: 1. Biomet Vanguard size 72.5 right posterior stabilized femoral component. 2. Biomet size 79 tibial tray with a large cruciate wing, 18 x 80 offset stem with a 5-mm adapter. 3. A 10-mm posterior stabilized polyethylene insert. 4. A 31 x 8 all poly patella. OPERATIVE PROCEDURE: The patient was taken to the operating room, identified and placed on the operating table in the supine position. All contact areas were appropriately padded. IV antibiotics were provided by anesthesia team. A spinal anesthetic and adductor canal block were provided in the holding area. Rowan catheter was placed in sterile fashion. Right thigh tourniquet was then placed and right lower extremity was then prepped and draped in the usual sterile fashion. The right leg was then elevated, exsanguinated with Esmarch and tourniquet was placed at 350 mmHg. An anterior approach to the right knee was then performed through a longitudinal incision centered over the patella. Sharp dissection was carried through the subcutaneous tissues down to the level of the extensor mechanism. A medial parapatellar arthrotomy incision was made. Some subperiosteal dissection was carried out medially. The fat pad resected from beneath the patellar tendon. Lateral patellofemoral ligament was released. The patella was everted and knee was flexed. The osteophytes were taken off the distal femur. The ACL and PCL were then released from the distal femur. The tibia subluxated anteriorly. I elected to place an intramedullary stem in this gentleman's tibia due to his very large size. The tibial eminence was resected. The intramedullary canal was entered with a drill. I then reamed up to a size 18. The internal alignment guide was then attached to the IM anna and the proximal tibial cut was made to remove about 2 mm of bone from the most deficient aspect of the tibial plateau. Tibia size was size 79. Attention was then drawn to the femur. The distal femur was entered with a sharp drill. Intramedullary canal was suctioned. A right 6-degree valgus cutting guide was placed. Distal femoral cutting block was pinned in place. Distal femoral cut was made to take an additional 3 mm of bone off the distal femur. The femur was then sized to a size 72.5. The AP cutting block was pinned parallel to the epicondylar axis, which was 3 degrees of external rotation. The anterior cut, anterior chamfer, posterior cut, and posterior chamfer cuts were made. Box cutting guide was placed and adjusted slight lateral and the box cut was made. The knee was flexed. The remnants of medial menisci were excised. The osteophytes were taken off the posterior aspect of the femur. Trial femoral component was placed. I then went to preparing the tibia. The tibial tray was pinned in place. The intramedullary stem was placed. The offset drilling guide was set at 11. The proximal tibia was reamed for the offset tray and then the large cruciate wing. A trial tibial component was assembled and placed in the tibia. The knee was then trialed with a 10-mm insert and fit most appropriately. Attention was then drawn to the patella. The patella was cleaned of all soft tissues. Patella thickness measured 25 mm and cut down to 15. It was sized to a size 31 patella. Lug holes were drilled for 31 patella. Lateral osteophyte was removed. Patella button was placed. Knee was taken through range of motion and patella tracked nicely with no thumbs test. Attention was then drawn toward placement of permanent components. All trial components were removed. Bone plug was placed in the distal femur to limit blood loss. A double batch of [place]os G cement was mixed with an additional gram of vancomycin due to his large size and his intent if he has scabs on his legs. A right size 72.5 posterior stabilized femoral component, a size 79 tibial tray with an 18 x 80 offset stem with a large cruciate wing, a 10-mm posterior stabilized polyethylene insert, and a 31 x 8 all poly patella then cemented in place. Knee was brought into full extension until cement hardened. A final cement check was then performed. Pericapsular tissues were injected with a total of 100 mL of combination of 20 mL of Exparel, 30 mL of normal saline, and 50 mL of 0.25% Marcaine with epinephrine. The patient did receive 1 gram of tranexamic acid. The tourniquet was then let down for final tourniquet time of 79 minutes. Hemostasis was assured with the use of electrocautery. The extensor mechanism was then closed with a combination of #1 PDS suture and #1 Vicryl suture in a [id number] fashion. Extensor mechanism was checked and found to be intact. Subcutaneous tissues were then closed with #2 Dexon suture in a buried interrupted fashion. Skin was closed with skin troy. Leg was then cleaned and dried and a sterile dressing of Xeroform, 4 x 4, sterile cast padding and Regis bandage were applied. The patient then transferred to the recovery room in stable condition. The patient tolerated the procedure well with no complication. All needle and sponge counts were correct at the end of the operation. I attest to the content of the Intraoperative Record and any orders documented therein. Any exception s are noted below.
[2018-02-25] MEDS ORDERED: HYDROmorphone INJ 0.5 MG/0.5 ML SYR IV PRN (14:00)
--- NOTE | 2018-02-25 14:09 | DIAGNOSTIC IMAGING REPORT ---
R KNEE 1 OR 2 VIEWS ROUTINE CLINICAL HISTORY: 57 years-old Male presenting with AP/LATERAL IN PACU RIGHT KNEE. TECHNIQUE: Frontal and lateral views of the right knee were obtained. COMPARISON: 07/14/2017. FINDINGS: Interval postsurgical changes of total right knee arthroplasty with patellar resurfacing. Expected intra-articular and soft tissue emphysema. Overlying skin troy noted. No periprosthetic fracture. No malalignment. Intraosseous gas noted in the anterior aspect of the proximal tibial metaphysis. IMPRESSION: 1. Intraosseous gas in the anterior aspect of the proximal tibial metaphysis. This may be within the expected range of normal in the immediate postsurgical setting. 2. Otherwise expected postsurgical appearance status post total right knee arthroplasty with patellar resurfacing. Electronically signed by: Dany Lebron M.D. 02/25/2018 2:07 PM Dictated Date/Time: 02/25/2018 2:06 PM
[2018-02-25] MEDS ORDERED: HYDROmorphone INJ 2 MG/ML SYR/VIAL IV PRN (14:30)
--- NOTE | 2018-02-25 14:37 | Anesthesiology Progress Note ---
Anesthesia Post Op Note Date & Time Feb 25, 2018 at 14:37 Vital Signs Pain Intensity: 5 Vital Signs Past 12 Hours Date Time Temp Pulse Resp B/P (MAP) Pulse Ox O2 Delivery O2 Flow Rate FiO2 02/25/18 14:30 93 19 131/87 95 Nasal Cannula 4 02/25/18 14:20 89 17 133/87 95 Nasal Cannula 2 02/25/18 14:10 87 21 126/82 96 Nasal Cannula 2 02/25/18 14:00 79 16 142/86 99 Nasal Cannula 2 02/25/18 13:50 78 15 140/91 98 Nasal Cannula 2 02/25/18 13:40 84 18 128/80 98 Nasal Cannula 2 02/25/18 13:30 75 18 127/83 98 Nasal Cannula 2 02/25/18 13:21 36.2 88 18 124/81 99 Nasal Cannula 2 02/25/18 09:15 36.8 102 20 163/95 96 Room Air Notes Mental Status: alert / awake / arousable, participated in evaluation Pt Amnestic to Procedure: Yes Nausea / Vomiting: adequately controlled Pain: adequately controlled Airway Patency, RR, SpO2: stable & adequate BP & HR: stable & adequate Hydration State: stable & adequate Neuraxial Anesthesia: was administered, sensory block is resolving Anesthetic Complications: no major complications apparent
[2018-02-25] MEDS: CHECK SCOPOLAMINE PATCH PLACEMENT SCH ×2 (15:46→23:20)
[2018-02-25] MEDS: ACETAMINOPHEN 500 MG TAB PO SCH ×2 (16:33→23:21)
[2018-02-25] MEDS: KETOROLAC TROMETHAMINE 30 MG/ML VIAL IV. SCH ×2 (16:33→21:24)
[2018-02-25] MEDS ORDERED: NURSING VERBAL MED ORDER ONE (16:45)
[2018-02-25] MEDS: FERROUS GLUCONATE 324 MG TAB PO SCH (17:28)
[2018-02-25] MEDS: CEFAZOLIN IV 2,000 MG in SYRINGE 0 ML IV SCH (19:13)
[2018-02-25] MEDS ORDERED: TRANEXAMIC ACID INJ 1,000 MG in SODIUM CHLORIDE 0.9% 100ML 100 ML IV SCH (19:30)
[2018-02-25] MEDS: OXYCODONE HCL IR 5 MG TAB (IMMEDIATE RELEASE) PO PRN (20:20)
[2018-02-25] MEDS: D5W AND 1/2NSS + 20MEQ KCL 1,000 ML IV SCH (20:36)
[2018-02-25] MEDS: TAPENTADOL ER 50 MG TABCR PO SCH (21:23)
[2018-02-25] MEDS: ASPIRIN 81 MG ECTAB PO SCH (21:24)
[2018-02-25] MEDS: CARBIDOPA/LEVODOPA 25-250 1 EA TAB PO SCH (21:24)
[2018-02-25] MEDS: TAMSULOSIN HCL 0.4 MG CAP PO SCH (21:25)
[2018-02-25] MEDS: PANTOprazole SOD 40 MG TAB PO SCH (21:25)
[2018-02-25] MEDS: RANITIDINE HCL 150 MG TAB PO SCH (21:25)
[2018-02-25] MEDS: DOCUSATE SODIUM 100 MG CAP PO SCH (21:26)
[2018-02-25] MEDS: SENNA 8.6 MG TAB PO SCH (21:26)
[2018-02-26] MEDS: CEFAZOLIN IV 2,000 MG in SYRINGE 0 ML IV SCH (03:08)
[2018-02-26] MEDS: KETOROLAC TROMETHAMINE 30 MG/ML VIAL IV. SCH ×4 (03:08→21:20)
[2018-02-26] MEDS: D5W AND 1/2NSS + 20MEQ KCL 1,000 ML IV SCH ×2 (03:08→08:57)
[2018-02-26 03:12] VITALS: BP 118/78; PULSE 81; TEMP 36.8; O2SAT 95
[2018-02-26 06:26] LABS: HEMATOCRIT 41.9 % (42-52); HEMOGLOBIN 13.8 g/dL (14.0-18.0); MEAN CORPUSCULAR HEMOGLOBIN 29.3 pg (25-34); MEAN CORPUSCULAR HGB CONC 32.9 g/dl (32-36); MEAN PLATELET VOLUME 9.6 fL (7.4-10.4); PLATELET COUNT 155 K/uL (130-400); RED CELL DISTRIBUTION WIDTH SD 48.7 fL (36.4-46.3); WHITE BLOOD COUNT 9.09 K/uL (4.8-10.8)
[2018-02-26 06:55] VITALS: BP 129/89; PULSE 95; TEMP 36.4; O2SAT 95
[2018-02-26 07:08] LABS: CALCIUM 8.3 mg/dl (8.5-10.1); CREATININE 1.13 mg/dl (0.60-1.40); POTASSIUM 4.2 mmol/L (3.5-5.1)
[2018-02-26] MEDS: CHECK SCOPOLAMINE PATCH PLACEMENT SCH ×2 (08:00→15:51)
--- NOTE | 2018-02-26 08:22 | PROGRESS NOTE ---
DATE: 02/26/2018 SUBJECTIVE: A 57-year-old gentleman postop day 1 from right knee replacement. He is doing pretty well. Pretty painful last night but doing much better this morning. No chest pain or shortness of breath. Not feeling dizzy or lightheaded. OBJECTIVE: VITAL SIGNS: Temperature 36.4. Vital signs stable. PHYSICAL EXAMINATION: GENERAL: Shows a pleasant middle-aged male. He is lying in bed, looks pretty comfortable. LUNGS: Clear to auscultation. HEART: Regular rate and rhythm. ABDOMEN: Soft, nontender, nondistended. EXTREMITIES: Grossly neurovascularly intact except as follows: Examination of the right leg reveals the dressing to be clean, dry and intact. Leg is well aligned. He can dorsiflex and plantarflex his foot appropriately. NEUROLOGIC: He is neurologically intact. LABORATORY DATA: Hemoglobin 13.8, hematocrit 41.9. Electrolytes are stable. ASSESSMENT: A 57-year-old gentleman postop day 1 from right knee replacement, doing pretty well. Pain is controlled. He is neurologically intact. PLAN: 1. DVT prophylaxis including thigh-high TEDs, SCDs, and aspirin twice a day. 2. PT/OT. Weight bear as tolerated. Right total knee protocol. 3. Pain control, doing well with current pain regimen. 4. Disposition: Plan to discharge to home. He is going to do outpatient therapy once medically stable.
[2018-02-26] MEDS: ACETAMINOPHEN 500 MG TAB PO SCH ×3 (08:27→23:34)
[2018-02-26] MEDS: TAPENTADOL ER 50 MG TABCR PO SCH ×2 (08:27→21:19)
[2018-02-26] MEDS: DOCUSATE SODIUM 100 MG CAP PO SCH ×2 (08:28→21:20)
[2018-02-26] MEDS: RANITIDINE HCL 150 MG TAB PO SCH ×2 (08:28→21:19)
[2018-02-26] MEDS: FINASTERIDE 5 MG TAB PO SCH (08:28)
[2018-02-26] MEDS: ASPIRIN 81 MG ECTAB PO SCH ×2 (08:28→21:19)
[2018-02-26] MEDS: MULTIVITAMIN TAB PO SCH (08:29)
[2018-02-26] MEDS: FERROUS GLUCONATE 324 MG TAB PO SCH ×3 (08:29→18:26)
[2018-02-26] MEDS ORDERED: PANTOprazole SOD 40 MG TAB PO SCH (09:00)
[2018-02-26 10:00] VITALS: PULSE 90; O2SAT 94
[2018-02-26] MEDS: OXYCODONE HCL IR 5 MG TAB (IMMEDIATE RELEASE) PO PRN ×2 (14:40→21:19)
[2018-02-26 15:48] VITALS: BP 131/77; PULSE 98; TEMP 37.2; O2SAT 96
[2018-02-26] MEDS ORDERED: ACET-24 PO (17:50)
[2018-02-26] MEDS ORDERED: RXC5 PO (17:50)
[2018-02-26] MEDS ORDERED: ASPEC81 PO (17:50)
--- NOTE | 2018-02-26 17:52 | Discharge Instructions ---
Discharge Instructions Date of Service Feb 26, 2018. Admission Reason for Admission: Right Knee Degenerative Joint Disease Discharge Discharge Diagnosis / Problem: Right Knee Replacement Discharge Goals Goal(s): Decrease discomfort, Improve function, Increase independence, Improve disease control, Therapeutic intervention Activity Recommendations Activity Limitations: per Instructions/Follow-up section Weightbearing Status: Right weightbearing . Instructions / Follow-Up Instructions / Follow-Up ACTIVITY RECOMMENDATIONS: Physical Therapy: * You will go to physical therapy three times each week for four to six weeks after your surgery in order to regain your knee range of motion and to retrain your knee to work properly. * It is just as important to make sure you are getting your knee perfectly straight as it is to regain your knee bend. * Taking a pain pill an hour before therapy can help you have a more productive and comfortable therapy session. Home Exercise: * You were shown a series of exercises (heel props, heel slides, etc.) in the hospital. Do these exercises three to four times each day including the exercises you were shown in physical therapy. Walking: * Get up and walk several times each day. For the first four weeks, try not to stand or walk for more than one hour at a time. If you do stand or walk for more than one hour, you will not hurt anything, but your knee and leg will likely swell. * As you feel comfortable, you may change from the walker or crutches to a cane and then to independent walking. MEDICATIONS: New Medicine: * You will likely be taking one or more of these medications: 1. Oxycodone - A quick and shorter-acting pain medication. Take one to two tablets every four to six hours to lessen your pain. 2. Aspirin - Thins your blood to lessen the chance of forming a blood clot. * The most common side effects of pain medicine and iron are nausea and constipation. If nausea or constipation is too much of a problem or if you have any questions about your new medicines or doses, call [facility] at . We will try to help you manage these issues. VERY IMPORTANT TO READ AND REVIEW" Pain: * The immediate post-operative period after knee replacement surgery is often quite painful. * You are given a prescription for pain medicine. You should take it, as directed, when you need it, especially before physical therapy and before going to bed. Pain that interferes with sleep is very common and can last several months. * You will likely need pain medicine for the first four to six weeks. It will not stop all of the pain. The pain will lessen and as you feel better, you may change to milder pain medicine such as Tylenol. * The most common side effects of pain medicine are nausea and constipation, so don't take more than you need. SPECIAL CARE INSTRUCTIONS: TEDs/Elastic Stockings: * The white elastic stockings help limit swelling and prevent blood clots from forming in your legs. The more you wear them, the more they work. * Wear them for six weeks after knee replacement surgery and four weeks after partial knee replacement. Prevention of Infection: * Take antibiotics one hour before any dental cleaning, dental work, urological procedure, gastrointestinal procedure or any invasive surgery in order to prevent your new joint from getting infected. * You may get the antibiotics from the doctor performing the procedure or you may call our office at before and we will call in a prescription to the pharmacy of your choice. Things to Watch For: * Drainage from the incision site that occurs more than one week after your surgery. * Severely increased knee/leg pain or swelling. * Increased redness at the incision site. * Fever above 102 degrees Fahrenheit. * Unusual chest pain or shortness of breath. * Unusual pain or burning with urination. Call [facility] at with any of the above problems or if you have any questions about your medicines or recovery. FOLLOW UP VISIT: Make an appointment to see your doctor for approximately two weeks after surgery for a progress check and staple removal by calling the office at . Current Hospital Diet Patient's current hospital diet: Regular Diet Discharge Diet Recommended Diet: Regular Diet Procedures Procedures Performed: Right Total Knee Arthroplasty Pending Studies Studies pending at discharge: no Laboratory Results Hemoglobin A1c Test 01/26/18 11:15 Range/Units Estimated Average Glucose 123 mg/dl Hemoglobin A1c 5.9 H 4.5-5.6 % Medical Emergencies . Who to Call and When: Medical Emergencies: If at any time you feel your situation is an emergency, please call 911 immediately. . Non-Emergent Contact Non-Emergency issues call your: Surgeon . "Provider Documentation" section prepared by Jesse Henry. .
[2018-02-26] MEDS: TAMSULOSIN HCL 0.4 MG CAP PO SCH (21:19)
[2018-02-26] MEDS: CARBIDOPA/LEVODOPA 25-250 1 EA TAB PO SCH (21:20)
[2018-02-26] MEDS: SENNA 8.6 MG TAB PO SCH (21:20)
[2018-02-26] MEDS: PANTOprazole SOD 40 MG TAB PO SCH (21:20)
[2018-02-26] MEDS ORDERED: NURSING VERBAL MED ORDER ONE (21:30)
[2018-02-26 23:09] VITALS: BP 113/68; PULSE 79; TEMP 36.9; O2SAT 96
[2018-02-27] MEDS: KETOROLAC TROMETHAMINE 30 MG/ML VIAL IV. SCH ×2 (04:24→10:00)
[2018-02-27 06:33] VITALS: BP 107/79; PULSE 87; TEMP 36.9; O2SAT 94
[2018-02-27] MEDS: ASPIRIN 81 MG ECTAB PO SCH (07:22)
[2018-02-27] MEDS: DOCUSATE SODIUM 100 MG CAP PO SCH (07:22)
[2018-02-27] MEDS: FINASTERIDE 5 MG TAB PO SCH (07:23)
[2018-02-27] MEDS: FERROUS GLUCONATE 324 MG TAB PO SCH (07:23)
[2018-02-27] MEDS: ACETAMINOPHEN 500 MG TAB PO SCH (07:23)
[2018-02-27] MEDS: MULTIVITAMIN TAB PO SCH (07:23)
[2018-02-27] MEDS: TAPENTADOL ER 50 MG TABCR PO SCH (07:23)
[2018-02-27] MEDS: RANITIDINE HCL 150 MG TAB PO SCH (07:23)
--- NOTE | 2018-02-27 08:05 | PROGRESS NOTE ---
DATE: 02/27/2018 SUBJECTIVE: A 57-year-old gentleman postop day 2 from right knee replacement. Doing quite well. Pain is controlled. No chest pain or shortness of breath. Not feeling dizzy or lightheaded. OBJECTIVE: VITAL SIGNS: Temperature 36.9. Vital signs stable. PHYSICAL EXAMINATION: GENERAL: Reveals a pleasant middle-aged male. He is sitting at his bedside, eating breakfast and looks comfortable. EXTREMITIES: Examination of the right leg reveals the dressing to be clean, dry and intact. He can dorsiflex and plantarflex his foot appropriately. Calf is soft and supple. ASSESSMENT: A 57-year-old gentleman postop day 2 from right knee replacement, doing pretty well. Pain is controlled. PLAN: 1. DVT prophylaxis including thigh-high TEDs, SCDs, and aspirin twice a day. 2. PT/OT. Weight bear as tolerated. Right total knee protocol. 3. Pain control, doing well with current pain regimen. 4. Disposition: Plan to discharge to home after therapy today.
[2018-02-27 10:38] VITALS: BP 107/79; PULSE 87; TEMP 36.9; O2SAT 94
== END 2018-02-27 11:17 | disposition home or self-care (01) | DRG 470 ==
LOC: C.ACU 08:48 → C.3E 10:00 → ENRESERV 14:04
PROVIDERS: ADMIT Orthopaedic Surgery Sports Medicine; ATTEND Orthopaedic Surgery Sports Medicine
PROC: 0SRC0J9 Replacement of Right Knee Joint with Synthetic Substitute, Cemented, Open Approach (ICD-10-PCS; principal; 2018-02-25 11:00)
DX: M17.11 Unilateral primary osteoarthritis, right knee (principal); E66.01 Morbid (severe) obesity due to excess calories; Z68.43 Body mass index [BMI] 50.0-59.9, adult; G47.30 Sleep apnea, unspecified; G25.81 Restless legs syndrome; I10 Essential (primary) hypertension; K21.9 Gastro-esophageal reflux disease without esophagitis; N40.0 Benign prostatic hyperplasia without lower urinary tract symptoms; Z96.652 Presence of left artificial knee joint; Z90.49 Acquired absence of other specified parts of digestive tract; Z98.890 Other specified postprocedural states; Z87.442 Personal history of urinary calculi; Z87.891 Personal history of nicotine dependence; Z79.1 Long term (current) use of non-steroidal anti-inflammatories (NSAID); Z79.899 Other long term (current) drug therapy; Z88.1 Allergy status to other antibiotic agents; Z82.49 Family history of ischemic heart disease and other diseases of the circulatory system; Z83.3 Family history of diabetes mellitus